=== PATIENT | female | born 1945 | race Caucasian/White ===

== ENCOUNTER 2017-01-31 12:45 | Emergency (ER) | payer MEDICARE, OTHER ==
[~2017-01-31] VITALS: Ht 160 cm; Wt 78.6 kg
[2017-01-31 14:04] LABS: BASOPHILS # (AUTO) 0.07 K/uL (0.00-0.20); EOSINOPHILS # (AUTO) 0.21 K/uL (0.00-0.70); EOSINOPHILS % (AUTO) 3.36 % (1.0-6.0); HEMATOCRIT 39.4 % (36-46); HEMOGLOBIN 13.5 g/dL (12.0-16.0); LYMPHOCYTES # (AUTO) 1.8 K/uL (1.0-4.8); LYMPHOCYTES % (AUTO) 28.1 % (22.0-44.0); MEAN CORPUSCULAR HEMOGLOBIN 30.1 pg (26.0-34.0); MEAN CORPUSCULAR HGB CONC 34.1 G/dL (31.0-37.0); MEAN CORPUSCULAR VOLUME 88 fL (80-100); MONOCYTES # (AUTO) 0.6 K/uL (0.1-1.0); MONOCYTES % (AUTO) 9.7 % (2.0-9.0); NEUTROPHILS # (AUTO) 3.7 K/uL (1.8-7.7); NEUTROPHILS % (AUTO) 57.8 % (40.0-70.0); PLATELET COUNT (AUTO) 346 K/uL (150-450); RED BLOOD CELL COUNT(AUTO) 4.47 MIL/uL (4.00-5.20); RED CELL DISTRIBUTION WIDTH 13.5 % (11.5-14.5); WHITE BLOOD COUNT (AUTO) 6.4 K/uL (4.5-11.0)
[2017-01-31 14:11] LABS: CHLORIDE 94 mmol/L (98-107); SODIUM SERUM 133 mmol/L (136-145)
[2017-01-31 14:12] LABS: ANION GAP 13 mmol/L (8-16); CALCIUM, TOTAL 9.5 mg/dL (8.8-10.5); CARBON DIOXIDE 26 mmol/L (22-29); GLOMERULAR FILTR. RATE CALC 54 mL/min (>60); UREA NITROGEN, BLOOD 24 mg/dL (7-18)
[2017-01-31 14:16] VITALS: BP 138/82
[2017-01-31 14:18] LABS: ALANINE AMINOTRANSFERASE 21 U/L (12-78); ALBUMIN 4.2 g/dL (3.4-5.0); ASPARTATE AMINOTRANSFERASE 23 U/L (15-37); BILIRUBIN,TOTAL 0.6 mg/dL (0.1-1.0); CREATINE KINASE, TOTAL 72 U/L (26-192); TOTAL PROTEIN, SERUM 7.9 g/dL (6.4-8.2)
[2017-01-31] MEDS ORDERED: POTASSIUM CHLORIDE 20 MEQ ER TABLET PO ONE (15:00)
== END 2017-01-31 15:09 | disposition home or self-care (01) ==
LOC: EMS 12:55
DX: E86.0 Dehydration (principal); E87.6 Hypokalemia; J32.9 Chronic sinusitis, unspecified; R51 Headache; I10 Essential (primary) hypertension; E03.9 Hypothyroidism, unspecified
CPT/HCPCS: 70450; 93005; 99285